=== PATIENT | male | born 1980 | race Caucasian/White ===

== ENCOUNTER 2016-07-10 04:15 | Emergency (ER) | payer MEDICARE, MEDICAID ==
[2016-07-10] MEDS ORDERED: Ketorolac 30 MG/ML SDV IVPUSH ONE (04:53)
[2016-07-10] MEDS ORDERED: Sodium Chloride 0.9% 1,000 ML IV ONE (04:53)
[2016-07-10] MEDS ORDERED: methylPREDNISolone Sodium Succinate 125 MG/2 ML SDV IVPUSH ONE (04:53)
[2016-07-10] MEDS ORDERED: Sodium Chloride 0.9% 5 ML Syringe FLUSH PRN (04:53)
[2016-07-10] MEDS ORDERED: Metoclopramide 10 MG/2 ML SDV IVPUSH ONE (04:55)
--- NOTE | 2016-07-10 05:01 | EDM.PDOC ---
ED HPI HEADACHE COMPLAINT - General Chief Complaint: Headache Stated Complaint: migraine Time Seen by Provider: 07/10/16 04:53 Source of Information: Reports: Patient History Limitations: Reports: No limitations - History of Present Illness INITIAL COMMENTS - FREE TEXT/NARRATIVE: PT PRESENTS WITH MIGRAINE ROMERO THAT BEGAN AT 0100 TODAY. DESCRIBED TYPICAL MIGRAINE FOR HIM. DENIES AURA, N/V, FEVER, STIFF NECK, OR TRAUMA, Timing/Duration: Reports: waxing/waning Location: Reports: generalized Quality: Reports: pounding Severity: Reports: moderate, similar to past headaches Associated Symptoms: Reports: denies other symptoms Treatments VAULT CLERK: Reports: Other medication(s) (IMITREX) - Related Data Allergies/ADRs: Allergies Allergy/AdvReac Type Severity Reaction Status Date / Time aspirin Allergy Unknown Vomiting Verified 05/02/16 05:58 Home Meds: Home Meds Pregabalin [Lyrica] 100 mg PO TID 10/29/13 [History] Promethazine [Phenergan] 25 mg PO Q6HR PRN 10/29/13 [History] SUMAtriptan [Sumatriptan] 100 mg PO BID PRN 10/29/13 [History] tiZANidine [Zanaflex] 8 mg PO TID 10/29/13 [History] traMADol HCl [Tramadol HCl] 50 mg PO Q6H PRN 02/16/14 [History] Hydrocodone/Acetaminophen [Hydrocodon-Acetaminophn 10-325] 1 each PO TID [History] SUMAtriptan [Imitrex] 6 mg SQ BID PRN 11/11/14 [History] Past Medical History HEENT History: Reports: Impaired vision, Otitis media, Other (see below) Other HEENT History: Tonsilitis Cardiovascular History: Reports: None Respiratory History: Reports: Asthma, Other (see below) Other Respiratory History: White lung disease Gastrointestinal History: Reports: GI bleed, PUD Musculoskeletal History: Reports: Fracture, Other (see below) Other Musculoskeletal History: States he fractured both lower legs when he was 16 yrs old. The accident affected his bilateral knees and his neck. Neurological History: Reports: Headaches, chronic, Migraines, Other (see below) Other Neuro History: herniated disc in neck Psychiatric History: Reports: Anxiety, Depression - Infectious Disease History Infectious Disease History: Reports: Chicken pox - Past Surgical History HEENT Surgical History: Reports: Oral surgery Cardiovascular Surgical History: Reports: None Respiratory Surgical History: Reports: None GI Surgical History: Reports: None Musculoskeletal Surgical History: Reports: None Social & Family History - Family History Family Medical History: Noncontributory - Tobacco Use Smoking Status *Q: Current Every Day Smoker Years of Tobacco use: 24 Packs/Tins Daily: 0.5 Used Tobacco, but Quit: No Second Hand Smoke Exposure: Yes - Caffeine Use Caffeine Use: Reports: Soda - Alcohol Use Days Per Week of Alcohol Use: 1 Number of Drinks Per Day: 2 Total Drinks Per Week: 2 - Recreational Drug Use Recreational Drug Use: No - Living Situation & Occupation Occupation: disabled ED ROS GENERAL - Review of Systems Review Of Systems: ROS reveals no pertinent complaints other than HPI. Constitutional: Reports: no symptoms HEENT: Reports: No symptoms Respiratory: Reports: No Symptoms Cardiovascular: Reports: No symptoms Endocrine: Reports: no symptoms GI/Abdominal: Reports: No symptoms : Reports: no symptoms Musculoskeletal: Reports: no symptoms Skin: Reports: no symptoms Neurological: Reports: Headache. Denies: Dizziness, Numbness, Paresthesia, Trouble Speaking, Difficulty Walking, Weakness, Change in Speech, Gait Disturbance Psychiatric: Reports: No symptoms Hematologic/Lymphatic: Reports: no symptoms Immunologic: Reports: no symptoms - Physical Exam Exam: See Below Exam Limited By: No limitations General Appearance: alert, WD/WN, no apparent distress Eye Exam: bilateral eye: normal inspection Ears: normal external exam, normal canal, normal TMs Nose: normal inspection, normal mucosa, no blood Throat/Mouth: Normal inspection, Normal oropharynx, No airway compromise Head Exam: atraumatic, normocephalic Neck: normal inspection, supple, non-tender, full range of motion Respiratory/Chest: no respiratory distress, lungs clear, normal breath sounds, no accessory muscle use, chest non-tender Cardiovascular: regular rate, rhythm, no murmur GI/Abdominal: normal bowel sounds, soft, non tender Neuro Exam (Abbreviated): alert, oriented, CN II-XII intact, normal cognition, no motor/sensory deficits Extremities: normal inspection, no pedal edema Psychiatric: normal affect, normal mood Skin Exam: Warm, Dry, Intact, Normal color, No rash Course - Orders/Labs/Meds Orders: Active Orders 24 hr Category Date Time Status Peripheral IV Care [RC] . DIRECTED Care 07/10/16 04:54 Ordered Ketorolac [Toradol] Med 07/10/16 04:53 Once 30 mg IVPUSH ONETIME ONE Metoclopramide [Reglan] Med 07/10/16 04:55 Once 5 mg IVPUSH ONETIME ONE Sodium Chloride 0.9% @ 999 MLS/HR (1000ml) Med 07/10/16 04:53 Ordered Sodium Chloride 0.9% [Normal Saline] 1,000 ml IV .BOLUS Sodium Chloride 0.9% [Syrex Flush] Med 07/10/16 04:53 Ordered 5 ml FLUSH Q8HR PRN methylPREDNISolone Sod Succ [Solu-MEDROL] Med 07/10/16 04:53 Once 125 mg IVPUSH ONETIME ONE Peripheral IV Insertion Adult [OM.PC] Routine Oth 07/10/16 04:53 Ordered - Re-Assessments/Exams Free Text/Narrative Re-Assessment/Exam: 07/10/16 05:20 PT AFEBRILE, NONTOXIC APPEARING, VSS, ROMERO MOSTLY RELIEVED. Departure - Departure Time of Disposition: 05:21 Disposition: Home, Self-Care 01 Condition: good Clinical Impression: Migraine, Headache, Migraine without aura and responsive to treatment Instructions: Migraine Headache, [id number] Referrals: Martha Poole MD [Physician] - Forms: ED Department Discharge Additional Instructions: FOLLOW UP WITH PCP IN NEXT 2-3 DAYS. RETURN TO ER SOONER IF SYMPTOMS CONTINUE - My Orders Last 24 Hours: My Active Orders 07/10/16 04:53 Ketorolac [Toradol] 30 mg IVPUSH ONETIME ONE Sodium Chloride 0.9% @ 999 MLS/HR (1000ml) Sodium Chloride 0.9% [Normal Saline] 1,000 ml IV .BOLUS Sodium Chloride 0.9% [Syrex Flush] 5 ml FLUSH Q8HR PRN methylPREDNISolone Sod Succ [Solu-MEDROL] 125 mg IVPUSH ONETIME ONE Peripheral IV Insertion Adult [OM.PC] Routine 07/10/16 04:54 Peripheral IV Care [RC] . DIRECTED 07/10/16 04:55 Metoclopramide [Reglan] 5 mg IVPUSH ONETIME ONE - Assessment/Plan Last 24 Hours: My Active Orders 07/10/16 04:53 Ketorolac [Toradol] 30 mg IVPUSH ONETIME ONE Sodium Chloride 0.9% @ 999 MLS/HR (1000ml) Sodium Chloride 0.9% [Normal Saline] 1,000 ml IV .BOLUS Sodium Chloride 0.9% [Syrex Flush] 5 ml FLUSH Q8HR PRN methylPREDNISolone Sod Succ [Solu-MEDROL] 125 mg IVPUSH ONETIME ONE Peripheral IV Insertion Adult [OM.PC] Routine 07/10/16 04:54 Peripheral IV Care [RC] . DIRECTED 07/10/16 04:55 Metoclopramide [Reglan] 5 mg IVPUSH ONETIME ONE Assessment:: MIGRAINE HEADACHE Plan: F/U WITH PCP
[2016-07-10 05:23] VITALS: BP 124/73
== END 2016-07-10 05:50 | disposition home or self-care (01) ==
LOC: KA.ED 04:15
DX: G43.009 Migraine without aura, not intractable, without status migrainosus (principal); J45.909 Unspecified asthma, uncomplicated; F17.210 Nicotine dependence, cigarettes, uncomplicated; F32.9 Major depressive disorder, single episode, unspecified; F41.9 Anxiety disorder, unspecified; Z98.890 Other specified postprocedural states; Z88.6 Allergy status to analgesic agent
CPT/HCPCS: 96361; 96374; 96375; 99283; J1885; J2765; J2930; J7030; 99284

== ENCOUNTER 2016-08-30 13:20 | Emergency (ER) | payer MEDICARE, MEDICAID ==
[2016-08-30] MEDS ORDERED: diphenhydrAMINE 50 MG/ML SDV IVPUSH ONE (13:28)
[2016-08-30] MEDS ORDERED: Ketorolac 30 MG/ML SDV IVPUSH ONE (13:28)
[2016-08-30] MEDS ORDERED: Metoclopramide 10 MG/2 ML SDV IVPUSH ONE (13:28)
--- NOTE | 2016-08-30 13:34 | EDM.PDOC ---
ED HPI GENERAL MEDICAL PROBLEM - General Chief Complaint: Headache Stated Complaint: headache Time Seen by Provider: 08/30/16 13:20 Source of Information: Reports: Patient History Limitations: Reports: No Limitations - History of Present Illness INITIAL COMMENTS - FREE TEXT/NARRATIVE: 36 YO WM presents to ER with complaint of headache. Pt with history of chronic migraines and states this is similar to his typical migraine headaches he's gotten in the past but imitrex isn't helping. Pt denies any recent head injury, pt denies any vomiting. Pt reports he usually gets toradol, phenergan and benadryl for his intractable headaches like the one he has today. Pt denies any recent illness. Pt denies any fever/chills. Pt reports he drove himself to the ER and will arrange for a ride home. Onset Date: 08/30/16 Onset Time: 00:00 Duration: Hour(s): (13) Location: Reports: Head Quality: Reports: Ache Severity: Moderate Improves with: Reports: None, Rest Worsens with: Reports: Movement Associated Symptoms: Reports: No Other Symptoms Headache Pain Score (Numeric/FACES): 10 - Related Data Allergies Allergy/AdvReac Type Severity Reaction Status Date / Time aspirin Allergy Unknown Vomiting Verified 07/10/16 10:03 Home Meds: Home Meds Pregabalin [Lyrica] 100 mg PO TID 10/29/13 [History] Promethazine [Phenergan] 25 mg PO Q6HR PRN 10/29/13 [History] SUMAtriptan [Sumatriptan] 100 mg PO BID PRN 10/29/13 [History] tiZANidine [Zanaflex] 8 mg PO TID 10/29/13 [History] traMADol HCl [Tramadol HCl] 50 mg PO Q6H PRN 02/16/14 [History] Hydrocodone/Acetaminophen [Hydrocodon-Acetaminophn 10-325] 1 each PO TID [History] SUMAtriptan [Imitrex] 6 mg SQ BID PRN 11/11/14 [History] Past Medical History HEENT History: Reports: Impaired Vision, Otitis Media, Other (See Below) Other HEENT History: Tonsilitis Cardiovascular History: Reports: None Respiratory History: Reports: Asthma, Other (See Below) Other Respiratory History: White lung disease Gastrointestinal History: Reports: GI Bleed, PUD Musculoskeletal History: Reports: Fracture, Other (See Below) Other Musculoskeletal History: States he fractured both lower legs when he was 16 yrs old. The accident affected his bilateral knees and his neck. Neurological History: Reports: Headaches, Chronic, Migraines, Other (See Below) Other Neuro History: herniated disc in neck Psychiatric History: Reports: Anxiety, Depression - Infectious Disease History Infectious Disease History: Reports: Chicken Pox - Past Surgical History HEENT Surgical History: Reports: Oral Surgery Social & Family History - Family History Family Medical History: Noncontributory - Tobacco Use Smoking Status *Q: Current Every Day Smoker Years of Tobacco use: 24 Packs/Tins Daily: 0.5 Used Tobacco, but Quit: No Second Hand Smoke Exposure: Yes - Caffeine Use Caffeine Use: Reports: Soda - Alcohol Use Days Per Week of Alcohol Use: 1 Number of Drinks Per Day: 2 Total Drinks Per Week: 2 - Recreational Drug Use Recreational Drug Use: No - Living Situation & Occupation Occupation: Disabled ED [facility] GENERAL - Review of Systems Review Of Systems: See Below Constitutional: Reports: No Symptoms HEENT: Reports: No Symptoms Respiratory: Reports: No Symptoms Cardiovascular: Reports: No Symptoms Endocrine: Reports: No Symptoms GI/Abdominal: Reports: No Symptoms : Reports: No Symptoms Musculoskeletal: Reports: No Symptoms Skin: Reports: No Symptoms Neurological: Reports: Headache. Denies: Trouble Speaking, Difficulty Walking, Change in Speech, Gait Disturbance Psychiatric: Reports: No Symptoms Hematologic/Lymphatic: Reports: No Symptoms Immunologic: Reports: No Symptoms - Physical Exam Exam: See Below Exam Limited By: No Limitations General Appearance: Alert, WD/WN, Mild Distress Eye Exam: Bilateral Eye: EOMI, PERRL Throat/Mouth: Normal Inspection, Normal Lips, Normal Teeth, Normal Gums, Normal Oropharynx, Normal Voice, No Airway Compromise Head Exam: Atraumatic, Normocephalic Neck: Normal Inspection, Supple, Non-Tender, Full Range of Motion Respiratory/Chest: No Respiratory Distress, Lungs Clear, Normal Breath Sounds, No Accessory Muscle Use, Chest Non-Tender Cardiovascular: Normal Peripheral Pulses, Regular Rate, Rhythm, No Edema, No Gallop, No JVD, No Murmur, No Rub GI/Abdominal: Normal Bowel Sounds, Soft, Non-Tender, No Organomegaly, No Distention, No Abnormal Bruit, No Mass Neuro Exam (Abbreviated): Alert, Oriented, CN II-XII Intact, Normal Cognition, Normal Gait, Normal Reflexes, No Motor/Sensory Deficits Back Exam: Normal Inspection, Full Range of Motion, NT Extremities: Normal Inspection, Normal Range of Motion, Non-Tender, No Pedal Edema, Normal Capillary Refill Psychiatric: Normal Affect, Normal Mood Skin Exam: Warm, Dry, Intact, Normal Color, No Rash Course - Vital Signs Last Recorded V/S: Last Vital Signs Temp 36.7 C 08/30/16 13:26 Pulse 76 08/30/16 13:26 Resp 18 08/30/16 13:26 BP Pulse Ox 98 08/30/16 13:26 - Orders/Labs/Meds Meds: Medications Discontinued Medications Generic Name Dose Route Start Last Admin Trade Name Freq PRN Reason Stop Dose Admin Diphenhydramine HCl 50 mg 08/30/16 13:28 Benadryl IVPUSH 08/30/16 13:29 ONETIME ONE Ketorolac Tromethamine 30 mg 08/30/16 13:28 Toradol IVPUSH 08/30/16 13:29 ONETIME ONE Metoclopramide HCl 10 mg 08/30/16 13:28 Reglan IVPUSH 08/30/16 13:29 ONETIME ONE Departure - Departure Time of Disposition: 13:59 Disposition: Home, Self-Care 01 Condition: fair Clinical Impression: Migraine Migraine Qualifiers: Migraine type: chronic without aura Status migrainosus presence: without status migrainosus Intractability: not intractable Qualified Code(s): G43.709 - Chronic migraine without aura, not intractable, without status migrainosus - Discharge Information Instructions: Recurrent Migraine Headache, [id number] Referrals: Martha Poole MD [Primary Care Provider] - Forms: ED Department Discharge - Assessment/Plan Assessment:: 1. Migraine headache- improved Plan: 1. discharge home 2. follow up with neurology for further evaluation and treatment 3. imitrex PRN
== END 2016-08-30 14:10 | disposition home or self-care (01) ==
LOC: KA.ED 13:20
DX: G43.709 Chronic migraine without aura, not intractable, without status migrainosus (principal); J45.909 Unspecified asthma, uncomplicated; F17.210 Nicotine dependence, cigarettes, uncomplicated; F41.9 Anxiety disorder, unspecified; F32.9 Major depressive disorder, single episode, unspecified; Z88.6 Allergy status to analgesic agent; Z98.890 Other specified postprocedural states
CPT/HCPCS: 96374; 96375; 99283; J1200; J1885; J2765

== ENCOUNTER 2016-11-20 22:33 | Emergency (ER) | payer MEDICARE, MEDICAID ==
[2016-11-20 22:56] VITALS: BP 107/67
[2016-11-20] MEDS ORDERED: Ketorolac 60 MG/2 ML SDV IM ONE (23:21)
[2016-11-20] MEDS ORDERED: Ketorolac 60 MG/2 ML SDV ONE (23:25)
--- NOTE | 2016-11-20 23:28 | EDM.PDOC ---
ED HPI GENERAL MEDICAL PROBLEM - General Chief Complaint: Headache Stated Complaint: HEADACHE Time Seen by Provider: 11/20/16 23:19 Source of Information: Reports: Patient History Limitations: Reports: No Limitations - History of Present Illness INITIAL COMMENTS - FREE TEXT/NARRATIVE: PT HAS CHRONIC HEADACHES AND DEVELOPED ONE THIS EVENING THAT DID NOT RESOLVE WITH IMITREX. DENIES TRAUMA, FEVER, N/V, BLURRY VISION, OR LOC. Onset: Gradual Duration: Chronic Location: Reports: Head Severity: Mild Improves with: Reports: None Worsens with: Reports: None Associated Symptoms: Reports: No Other Symptoms Treatments ACUTE SPECIALIST: Reports: Other Medication(s) Headache Pain Score (Numeric/FACES): 10 - Related Data Allergies Allergy/AdvReac Type Severity Reaction Status Date / Time aspirin Allergy Unknown Vomiting Verified 11/20/16 23:07 Home Meds: Home Meds Pregabalin [Lyrica] 100 mg PO TID 10/29/13 [History] Promethazine [Phenergan] 25 mg PO Q6HR PRN 10/29/13 [History] SUMAtriptan [Sumatriptan] 100 mg PO BID PRN 10/29/13 [History] tiZANidine [Zanaflex] 8 mg PO TID 10/29/13 [History] traMADol HCl [Tramadol HCl] 50 mg PO Q6H PRN 02/16/14 [History] Hydrocodone/Acetaminophen [Hydrocodon-Acetaminophn 10-325] 10 - 325 mg PO TID [History] SUMAtriptan [Imitrex] 6 mg SQ BID PRN 11/11/14 [History] Past Medical History HEENT History: Reports: Impaired Vision, Otitis Media, Other (See Below) Other HEENT History: Tonsilitis Cardiovascular History: Reports: None Respiratory History: Reports: Asthma, Other (See Below) Other Respiratory History: White lung disease Gastrointestinal History: Reports: GI Bleed, PUD Musculoskeletal History: Reports: Fracture, Other (See Below) Other Musculoskeletal History: States he fractured both lower legs when he was 16 yrs old. The accident affected his bilateral knees and his neck. Neurological History: Reports: Headaches, Chronic, Migraines, Other (See Below) Other Neuro History: herniated disc in neck Psychiatric History: Reports: Anxiety, Depression - Infectious Disease History Infectious Disease History: Reports: Chicken Pox - Past Surgical History HEENT Surgical History: Reports: Oral Surgery Respiratory Surgical History: Reports: None GI Surgical History: Reports: None Neurological Surgical History: Reports: None Social & Family History - Family History Family Medical History: Noncontributory - Tobacco Use Smoking Status *Q: Current Every Day Smoker Years of Tobacco use: 24 Packs/Tins Daily: 0.5 Used Tobacco, but Quit: No Second Hand Smoke Exposure: Yes - Caffeine Use Caffeine Use: Reports: Soda Other Caffeine Use: mountain dew - Alcohol Use Days Per Week of Alcohol Use: 1 Number of Drinks Per Day: 2 Total Drinks Per Week: 2 - Recreational Drug Use Recreational Drug Use: No - Living Situation & Occupation Occupation: Disabled ED ROS GENERAL - Review of Systems Review Of Systems: ROS reveals no pertinent complaints other than HPI. Constitutional: Reports: No Symptoms HEENT: Reports: No Symptoms Respiratory: Reports: No Symptoms Cardiovascular: Reports: No Symptoms Endocrine: Reports: No Symptoms GI/Abdominal: Reports: No Symptoms : Reports: No Symptoms Musculoskeletal: Reports: No Symptoms Skin: Reports: No Symptoms Neurological: Reports: Headache. Denies: Confusion, Dizziness, Trouble Speaking , Difficulty Walking, Change in Speech, Gait Disturbance Psychiatric: Reports: No Symptoms Hematologic/Lymphatic: Reports: No Symptoms Immunologic: Reports: No Symptoms - Physical Exam Exam: See Below Exam Limited By: No Limitations General Appearance: Alert, WD/WN, No Apparent Distress Eye Exam: Bilateral Eye: Normal Inspection Ears: Normal External Exam, Normal Canal Nose: Normal Inspection, Normal Mucosa, No Blood Throat/Mouth: Normal Inspection, Normal Oropharynx, No Airway Compromise Head Exam: Atraumatic, Normocephalic Neck: Normal Inspection Respiratory/Chest: No Respiratory Distress Neuro Exam (Abbreviated): Alert, Oriented, CN II-XII Intact, Normal Cognition, No Motor/Sensory Deficits Psychiatric: Normal Affect, Normal Mood Skin Exam: Warm, Dry, Intact, Normal Color, No Rash Course - Vital Signs Last Recorded V/S: Last Vital Signs Temp 99.0 F 11/20/16 22:52 Pulse 78 11/20/16 22:52 Resp 16 11/20/16 22:52 BP 107/67 11/20/16 22:52 Pulse Ox 98 11/20/16 22:52 - Orders/Labs/Meds Orders: Active Orders 24 hr Category Date Time Status Ketorolac [Toradol] Med 11/20/16 23:21 Once 60 mg IM ONETIME ONE - Re-Assessments/Exams Free Text/Narrative Re-Assessment/Exam: 11/20/16 23:26 PT AFEBRILE, NONTOXIC APPEARING, VSS, NO SIGNS OF DISCOMFORT. TORADOL GIVEN WITH SOME RELIEF Departure - Departure Time of Disposition: 23:26 Disposition: Home, Self-Care 01 Condition: Good Clinical Impression: Headache, Migraine Chronic pain Qualifiers: Chronic pain type: chronic pain syndrome Qualified Code(s): G89.4 - Chronic pain syndrome - Discharge Information Instructions: General Headache Without Cause, [id number], Chronic Pain Referrals: Martha Poole MD [Primary Care Provider] - Additional Instructions: FOLLOW UP WITH DR RODRÍGUEZ. RETURN TO ER IF SYMPTOMS CONTINUE - My Orders Last 24 Hours: My Active Orders 11/20/16 23:21 Ketorolac [Toradol] 60 mg IM ONETIME ONE - Assessment/Plan Last 24 Hours: My Active Orders 11/20/16 23:21 Ketorolac [Toradol] 60 mg IM ONETIME ONE Assessment:: CHRONIC HEADACHE Plan: F/U WITH PCP
== END 2016-11-20 23:45 | disposition home or self-care (01) ==
LOC: KA.ED 22:33
DX: G89.4 Chronic pain syndrome (principal); G43.909 Migraine, unspecified, not intractable, without status migrainosus; J45.909 Unspecified asthma, uncomplicated; F41.9 Anxiety disorder, unspecified; F32.9 Major depressive disorder, single episode, unspecified; F17.210 Nicotine dependence, cigarettes, uncomplicated; Z88.5 Allergy status to narcotic agent; Z98.890 Other specified postprocedural states
CPT/HCPCS: 96372; 99283; J1885

== ENCOUNTER 2016-11-23 05:06 | Emergency (ER) | payer MEDICARE, MEDICAID ==
[2016-11-23] MEDS ORDERED: Ketorolac 60 MG/2 ML SDV IM ONE (05:07)
[2016-11-23 05:21] VITALS: BP 124/92
--- NOTE | 2016-11-23 05:35 | EDM.PDOC ---
ED HPI GENERAL MEDICAL PROBLEM - General Chief Complaint: Headache Stated Complaint: MIGRAINE Time Seen by Provider: 11/23/16 05:26 Source of Information: Reports: Patient History Limitations: Reports: No Limitations - History of Present Illness INITIAL COMMENTS - FREE TEXT/NARRATIVE: PT STATES HE WOKE AT 0400 WITH MIGRAINE HEADACHE AND TOOK IMITREX. DID NOT GO AWAY SO CAME TO ER. DESCRIBES ROMERO SIMILAR TO PAST AND CAUSED BY DISPLACED BONES IN NECK WHICH IS WHY HE HAS SYMPTOMS. CHRONIC H/O SAME AND FREQUENT VISITS TO ER . DENIES TRAUMA, BLURRY VISION, N/V, OR FEVER. Onset: Today Onset Date: 11/23/16 Onset Time: 04:00 Location: Reports: Head Quality: Reports: Ache Severity: Mild Improves with: Reports: None Worsens with: Reports: None Associated Symptoms: Reports: No Other Symptoms Treatments PHOTO TECHNICIAN: Reports: Other Medication(s) (IMITREX) Headache Pain Score (Numeric/FACES): 10 - Related Data Allergies Allergy/AdvReac Type Severity Reaction Status Date / Time aspirin Allergy Unknown Vomiting Verified 11/23/16 05:07 Home Meds: Home Meds Pregabalin [Lyrica] 100 mg PO TID 10/29/13 [History] Promethazine [Phenergan] 25 mg PO Q6HR PRN 10/29/13 [History] SUMAtriptan [Sumatriptan] 100 mg PO BID PRN 10/29/13 [History] tiZANidine [Zanaflex] 8 mg PO TID 10/29/13 [History] traMADol HCl [Tramadol HCl] 50 mg PO Q6H PRN 02/16/14 [History] Hydrocodone/Acetaminophen [Hydrocodon-Acetaminophn 10-325] 10 - 325 mg PO TID [History] SUMAtriptan [Imitrex] 6 mg SQ BID PRN 11/11/14 [History] Past Medical History HEENT History: Reports: Impaired Vision, Otitis Media, Other (See Below) Other HEENT History: Tonsilitis Cardiovascular History: Reports: None Respiratory History: Reports: Asthma, Other (See Below) Other Respiratory History: White lung disease Gastrointestinal History: Reports: GI Bleed, PUD Musculoskeletal History: Reports: Fracture, Other (See Below) Other Musculoskeletal History: States he fractured both lower legs when he was 16 yrs old. The accident affected his bilateral knees and his neck. Neurological History: Reports: Headaches, Chronic, Migraines, Other (See Below) Other Neuro History: herniated disc in neck Psychiatric History: Reports: Anxiety, Depression - Infectious Disease History Infectious Disease History: Reports: Chicken Pox - Past Surgical History HEENT Surgical History: Reports: Oral Surgery Respiratory Surgical History: Reports: None GI Surgical History: Reports: None Neurological Surgical History: Reports: None Social & Family History - Family History Family Medical History: Noncontributory - Tobacco Use Smoking Status *Q: Current Every Day Smoker Years of Tobacco use: 24 Packs/Tins Daily: 0.5 Used Tobacco, but Quit: No Second Hand Smoke Exposure: Yes - Caffeine Use Caffeine Use: Reports: Soda Other Caffeine Use: [employer] dew - Alcohol Use Days Per Week of Alcohol Use: 1 Number of Drinks Per Day: 2 Total Drinks Per Week: 2 - Recreational Drug Use Recreational Drug Use: No - Living Situation & Occupation Occupation: Disabled ED ROS GENERAL - Review of Systems Review Of Systems: ROS reveals no pertinent complaints other than HPI. Constitutional: Reports: No Symptoms HEENT: Reports: No Symptoms Respiratory: Reports: No Symptoms Cardiovascular: Reports: No Symptoms Endocrine: Reports: No Symptoms GI/Abdominal: Reports: No Symptoms : Reports: No Symptoms Musculoskeletal: Reports: No Symptoms Skin: Reports: No Symptoms Neurological: Reports: No Symptoms Psychiatric: Reports: No Symptoms Hematologic/Lymphatic: Reports: No Symptoms Immunologic: Reports: No Symptoms - Physical Exam Exam: See Below Exam Limited By: No Limitations General Appearance: Alert, WD/WN, No Apparent Distress Eye Exam: Bilateral Eye: Normal Inspection Nose: Normal Inspection, No Blood Throat/Mouth: Normal Inspection, Normal Oropharynx, No Airway Compromise Head Exam: Atraumatic, Normocephalic Neck: Limited Range of Motion Respiratory/Chest: No Respiratory Distress, Lungs Clear Cardiovascular: Regular Rate, Rhythm Neuro Exam (Abbreviated): Alert, Oriented, CN II-XII Intact, Normal Cognition Extremities: Normal Inspection Psychiatric: Normal Affect, Normal Mood Skin Exam: Warm, Dry, Intact, Normal Color, No Rash Course - Vital Signs Last Recorded V/S: Last Vital Signs Temp 96.7 F 11/23/16 05:15 Pulse 86 11/23/16 05:15 Resp 16 11/23/16 05:15 BP 124/92 H 08/28/17 05:15 Pulse Ox 94 L 11/23/16 05:15 - Orders/Labs/Meds Meds: Medications Discontinued Medications Generic Name Dose Route Start Last Admin Trade Name Patricia PRN Reason Stop Dose Admin Ketorolac Tromethamine 60 mg 11/23/16 05:07 11/23/16 05:10 Toradol IM 11/23/16 05:08 60 mg ONETIME ONE Administration - Re-Assessments/Exams Free Text/Narrative Re-Assessment/Exam: 11/23/16 05:38 PT AFEBRILE, NONTOXIC APPEARING, VSS, TORADOL GIVEN, MODERATE RELIEF OBTAINED Departure - Departure Time of Disposition: 05:39 Disposition: Home, Self-Care 01 Condition: Good Clinical Impression: Migraine Qualifiers: Migraine type: chronic without aura Status migrainosus presence: without status migrainosus Intractability: not intractable Qualified Code(s): G43.709 - Chronic migraine without aura, not intractable, without status migrainosus - Discharge Information Instructions: Migraine Headache, [id number] Referrals: Martha Poole MD [Physician] - Additional Instructions: FOLLOW UP AT CLINIC IN NEXT 2-3 DAYS - Assessment/Plan Assessment:: MIGRAINE ROMERO Plan: FOLLOW UP AT PCP
== END 2016-11-23 05:45 | disposition home or self-care (01) ==
LOC: KA.ED 05:06
DX: G43.709 Chronic migraine without aura, not intractable, without status migrainosus (principal); J45.909 Unspecified asthma, uncomplicated; F17.210 Nicotine dependence, cigarettes, uncomplicated; Z88.6 Allergy status to analgesic agent
CPT/HCPCS: 96372; 99283; J1885

== ENCOUNTER 2017-01-02 13:44 | Emergency (ER) | payer MEDICARE, MEDICAID ==
[2017-01-02] MEDS ORDERED: diphenhydrAMINE 50 MG/ML SDV IM ONE (14:03)
[2017-01-02] MEDS ORDERED: Ketorolac 60 MG/2 ML SDV IM ONE (14:03)
[2017-01-02] MEDS ORDERED: methylPREDNISolone Sodium Succinate 125 MG/2 ML SDV IM ONE (14:03)
[2017-01-02 14:06] VITALS: BP 131/85
[2017-01-02] MEDS ORDERED: Ondansetron 4 MG Tab.DIS PO ONE (14:09)
--- NOTE | 2017-01-02 14:19 | EDM.PDOC ---
ED HPI GENERAL MEDICAL PROBLEM - General Chief Complaint: Headache Stated Complaint: MIGRAINE HEADACHE Time Seen by Provider: 01/02/17 13:49 Source of Information: Reports: Patient History Limitations: Reports: No Limitations - History of Present Illness INITIAL COMMENTS - FREE TEXT/NARRATIVE: Patient presents with one of his - Related Data Allergies Allergy/AdvReac Type Severity Reaction Status Date / Time aspirin Allergy Unknown Vomiting Verified 01/02/17 14:10 Home Meds: Home Meds Pregabalin [Lyrica] 100 mg PO TID 10/29/13 [History] Promethazine [Phenergan] 25 mg PO Q6HR PRN 10/29/13 [History] SUMAtriptan [Sumatriptan] 100 mg PO BID PRN 10/29/13 [History] tiZANidine [Zanaflex] 8 mg PO TID 10/29/13 [History] traMADol HCl [Tramadol HCl] 50 mg PO Q6H PRN 02/16/14 [History] Hydrocodone/Acetaminophen [Hydrocodon-Acetaminophn 10-325] 10 - 325 mg PO TID [History] SUMAtriptan [Imitrex] 6 mg SQ BID PRN 11/11/14 [History] Past Medical History HEENT History: Reports: Impaired Vision, Otitis Media, Other (See Below) Other HEENT History: Tonsilitis Cardiovascular History: Reports: None Respiratory History: Reports: Asthma, Other (See Below) Other Respiratory History: White lung disease Gastrointestinal History: Reports: GI Bleed, PUD Musculoskeletal History: Reports: Fracture, Other (See Below) Other Musculoskeletal History: States he fractured both lower legs when he was 16 yrs old. The accident affected his bilateral knees and his neck. Neurological History: Reports: Headaches, Chronic, Migraines, Other (See Below) Other Neuro History: herniated disc in neck Psychiatric History: Reports: Anxiety, Depression - Infectious Disease History Infectious Disease History: Reports: Chicken Pox - Past Surgical History HEENT Surgical History: Reports: Oral Surgery Respiratory Surgical History: Reports: None GI Surgical History: Reports: None Neurological Surgical History: Reports: None Social & Family History - Family History Family Medical History: Noncontributory - Tobacco Use Smoking Status *Q: Current Every Day Smoker Years of Tobacco use: 24 Packs/Tins Daily: 0.5 Used Tobacco, but Quit: No Second Hand Smoke Exposure: Yes - Caffeine Use Caffeine Use: Reports: Soda Other Caffeine Use: mountain dew - Alcohol Use Days Per Week of Alcohol Use: 1 Number of Drinks Per Day: 2 Total Drinks Per Week: 2 - Recreational Drug Use Recreational Drug Use: No - Living Situation & Occupation Occupation: Disabled ED ROS GENERAL - Review of Systems Review Of Systems: See Below Constitutional: Denies: Fever, Chills, Weakness HEENT: Denies: Ear Pain, Vision Change (except the usual photophobia with headaches) Respiratory: Reports: Cough (he is being treated for chronic bronchitis exacerbation by his PCP). Denies: Shortness of Breath Cardiovascular: Denies: Chest Pain, Lightheadedness, Syncope GI/Abdominal: Reports: Nausea. Denies: Abdominal Pain, Diarrhea, Vomiting : Denies: Dysuria Musculoskeletal: Reports: No Symptoms Skin: Denies: Cyanosis, Jaundice, Mottled, Pallor, Diaphoresis Neurological: Reports: Headache. Denies: Confusion, Dizziness, Seizure, Syncope Psychiatric: Denies: Agitation, Anxiety, Confusion - Physical Exam Exam: See Below Exam Limited By: No Limitations General Appearance: Alert, WD/WN, No Apparent Distress Eye Exam: Bilateral Eye: EOMI, Normal Inspection, PERRL Ears: Normal External Exam, Hearing Grossly Normal Nose: Normal Inspection, No Blood Throat/Mouth: Normal Inspection, Normal Lips, Normal Voice, No Airway Compromise Head Exam: Atraumatic, Normocephalic Respiratory/Chest: No Respiratory Distress, Crackles, Wheezing Cardiovascular: Regular Rate, Rhythm, No Murmur Neuro Exam (Abbreviated): Alert, Oriented, Normal Cognition, No Motor/Sensory Deficits Psychiatric: Normal Affect, Normal Mood Skin Exam: Warm, Dry, Intact, Normal Color, No Rash Course - Vital Signs Last Recorded V/S: Last Vital Signs Temp 97.5 F 01/02/17 14:04 Pulse 99 01/02/17 14:04 Resp 20 01/02/17 14:04 BP 131/85 01/02/17 14:04 Pulse Ox 93 L 01/02/17 14:04 - Orders/Labs/Meds Meds: Medications Discontinued Medications Generic Name Dose Route Start Last Admin Trade Name Freq PRN Reason Stop Dose Admin Diphenhydramine HCl 50 mg 01/02/17 14:03 Benadryl IM 01/02/17 14:04 ONETIME ONE Ketorolac Tromethamine 60 mg 01/02/17 14:03 Toradol IM 01/02/17 14:04 ONETIME ONE Methylprednisolone Sodium Succinate 125 mg 01/02/17 14:03 Solu-Medrol IM 01/02/17 14:04 ONETIME ONE Ondansetron HCl 4 mg 01/02/17 14:09 Zofran Odt PO 01/02/17 14:10 ONETIME ONE - Re-Assessments/Exams Free Text/Narrative Re-Assessment/Exam: 01/02/17 14:21 We discussed his past regimens for headache treatment. Since he needs to drive himself back home he will need to leave shortly after administration of the Benadryl to avoid driving with the drowsiness it causes. He is well aware of this as this has been the protocol on several past occasions. 01/02/17 15:21 Patient was discharged in stable condition and he said the headache was improving. Departure - Departure Time of Disposition: 14:48 Disposition: Home, Self-Care 01 Condition: Good Clinical Impression: Cluster headache syndrome, unspecified Qualifiers: Headache chronicity pattern: episodic headache Intractability: intractable Qualified Code(s): G44.011 - Episodic cluster headache, intractable - Discharge Information Referrals: Martha Poole MD [Primary Care Provider] - Additional Instructions: 1. Go directly home and try to get 10-12 hours of sleep. No driving for 8 hours after you get home as the Benadryl will need to wear off. 2. Drink 8 cups of water daily. 3. Follow up with your PCP as needed.
== END 2017-01-02 14:48 | disposition home or self-care (01) ==
LOC: KA.ED 13:44
DX: G44.011 Episodic cluster headache, intractable (principal); J45.909 Unspecified asthma, uncomplicated; F32.9 Major depressive disorder, single episode, unspecified; F17.210 Nicotine dependence, cigarettes, uncomplicated; Z88.6 Allergy status to analgesic agent
CPT/HCPCS: 96372; 99283; A9270; J1200; J1885; J2930

== ENCOUNTER 2017-02-02 21:30 | Emergency (ER) | payer MEDICARE, MEDICAID ==
[2017-02-02] MEDS ORDERED: Ketorolac 60 MG/2 ML SDV IM ONE (21:52)
[2017-02-02] MEDS ORDERED: diphenhydrAMINE 50 MG/ML SDV IM ONE (21:52)
[2017-02-02] MEDS ORDERED: Promethazine 25 MG/ML SDV IM ONE (21:52)
[2017-02-02 22:14] VITALS: BP 136/84
--- NOTE | 2017-02-02 22:14 | EDM.PDOC ---
ED HPI GENERAL MEDICAL PROBLEM - General Chief Complaint: Headache Stated Complaint: migraine Time Seen by Provider: 02/02/17 21:40 Source of Information: Reports: Patient History Limitations: Reports: No Limitations - History of Present Illness INITIAL COMMENTS - FREE TEXT/NARRATIVE: Patient presents with headache that started 12 hours ago. He has been diagnosed by a neurologist with both migraine and cluster-tension headaches that frequently require ER treatment when they present together. He is successful treating at home with Sumatriptan when it is an isolated migraine. He says the headache today is very typical for his combination headaches. Some nausea but no vomiting, vision change, balance problem, weakness, dizziness. - Related Data Allergies Allergy/AdvReac Type Severity Reaction Status Date / Time aspirin Allergy Unknown Vomiting Verified 02/02/17 21:52 Home Meds: Home Meds Pregabalin [Lyrica] 100 mg PO TID 10/29/13 [History] Promethazine [Phenergan] 25 mg PO Q6HR PRN 10/29/13 [History] SUMAtriptan [Sumatriptan] 100 mg PO BID PRN 10/29/13 [History] tiZANidine [Zanaflex] 8 mg PO TID 10/29/13 [History] traMADol HCl [Tramadol HCl] 50 mg PO Q6H PRN 02/16/14 [History] Hydrocodone/Acetaminophen [Hydrocodon-Acetaminophn 10-325] 10 - 325 mg PO TID [History] SUMAtriptan [Imitrex] 6 mg SQ BID PRN 11/11/14 [History] Past Medical History HEENT History: Reports: Impaired Vision, Otitis Media, Other (See Below) Other HEENT History: Tonsilitis Cardiovascular History: Reports: None Respiratory History: Reports: Asthma, Other (See Below) Other Respiratory History: White lung disease Gastrointestinal History: Reports: GI Bleed, PUD Musculoskeletal History: Reports: Fracture, Other (See Below) Other Musculoskeletal History: States he fractured both lower legs when he was 16 yrs old. The accident affected his bilateral knees and his neck. Neurological History: Reports: Headaches, Chronic, Migraines, Other (See Below) Other Neuro History: herniated disc in neck Psychiatric History: Reports: Anxiety, Depression - Infectious Disease History Infectious Disease History: Reports: Chicken Pox - Past Surgical History HEENT Surgical History: Reports: Oral Surgery Respiratory Surgical History: Reports: None GI Surgical History: Reports: None Neurological Surgical History: Reports: None Social & Family History - Family History Family Medical History: Noncontributory - Tobacco Use Smoking Status *Q: Current Every Day Smoker Years of Tobacco use: 24 Packs/Tins Daily: 0.5 Used Tobacco, but Quit: No Second Hand Smoke Exposure: Yes - Caffeine Use Caffeine Use: Reports: Soda Other Caffeine Use: mountain dew - Alcohol Use Days Per Week of Alcohol Use: 1 Number of Drinks Per Day: 2 Total Drinks Per Week: 2 - Recreational Drug Use Recreational Drug Use: No - Living Situation & Occupation Occupation: Disabled ED ROS GENERAL - Review of Systems Review Of Systems: ROS reveals no pertinent complaints other than HPI. - Physical Exam Exam: See Below Exam Limited By: No Limitations General Appearance: Alert, WD/WN, No Apparent Distress Eye Exam: Bilateral Eye: EOMI, Normal Inspection, PERRL Ears: Normal External Exam, Hearing Grossly Normal Nose: Normal Inspection, No Blood Throat/Mouth: Normal Lips, Normal Voice, No Airway Compromise Head Exam: Atraumatic, Normocephalic Neck: Full Range of Motion Respiratory/Chest: No Respiratory Distress, Lungs Clear, Normal Breath Sounds Cardiovascular: Regular Rate, Rhythm, No Murmur GI/Abdominal: No Distention Neuro Exam (Abbreviated): Alert, Oriented, CN II-XII Intact, Normal Cognition, Normal Gait, No Motor/Sensory Deficits Psychiatric: Normal Affect, Normal Mood Skin Exam: Warm, Dry, Intact, Normal Color, No Rash Course - Orders/Labs/Meds Meds: Medications Discontinued Medications Generic Name Dose Route Start Last Admin Trade Name Patricia PRN Reason Stop Dose Admin Diphenhydramine HCl 50 mg 02/02/17 21:52 Benadryl IM 02/02/17 21:53 ONETIME ONE Ketorolac Tromethamine 60 mg 02/02/17 21:52 Toradol IM 02/02/17 21:53 ONETIME ONE Promethazine HCl 25 mg 02/02/17 21:52 Phenergan IM 02/02/17 21:53 ONETIME ONE - Re-Assessments/Exams Free Text/Narrative Re-Assessment/Exam: 02/02/17 22:15 Headache was 10/10 on arrival and it is starting to improve now. We gave toradol, benadryl and phenergan IM which usually works well for him and he is able to go home and sleep. Typically the pain drops to 0-2 with in the hour. Pt discharged in stable condition. Departure - Departure Time of Disposition: 22:15 Disposition: Home, Self-Care 01 Condition: Good Clinical Impression: Migraine Headache Qualifiers: Headache type: cluster Headache chronicity pattern: episodic headache Intractability: intractable Qualified Code(s): G44.011 - Episodic cluster headache, intractable Cluster headache syndrome, unspecified Qualifiers: Headache chronicity pattern: episodic headache Intractability: intractable Qualified Code(s): G44.011 - Episodic cluster headache, intractable - Discharge Information Additional Instructions: 1. Try to sleep for 8-10 hours if possible. 2. Drink 8 cups of water a day and make sure to get some fresh air and exercise each day. 3. Follow up with your PCP if this doesn't completely resolve overnight. 4. Recheck with your PCP or ER as needed.
== END 2017-02-02 22:15 | disposition home or self-care (01) ==
LOC: KA.ED 21:30
DX: G44.011 Episodic cluster headache, intractable (principal); F17.210 Nicotine dependence, cigarettes, uncomplicated; G43.909 Migraine, unspecified, not intractable, without status migrainosus; Z88.8 Allergy status to other drugs, medicaments and biological substances
CPT/HCPCS: 96372; 99283; J1200; J1885; J2550

== ENCOUNTER 2017-04-10 00:03 | Emergency (ER) | payer MEDICARE, MEDICAID ==
[2017-04-10 00:11] VITALS: BP 150/98
[2017-04-10] MEDS ORDERED: Ketorolac 60 MG/2 ML SDV IM ONE (00:35)
[2017-04-10] MEDS ORDERED: diphenhydrAMINE 50 MG/ML SDV IM ONE (00:35)
[2017-04-10] MEDS ORDERED: Promethazine 25 MG/ML SDV IM ONE (00:35)
--- NOTE | 2017-04-10 00:42 | EDM.PDOC ---
ED HPI GENERAL MEDICAL PROBLEM - General Chief Complaint: Headache Stated Complaint: Migraine Time Seen by Provider: 04/10/17 00:22 Source of Information: Reports: Patient History Limitations: Reports: No Limitations - History of Present Illness INITIAL COMMENTS - FREE TEXT/NARRATIVE: Patient presents with one of his typical migraine/cluster headaches. He took his usual migraine abortive meds at home and the migraine was getting better he thought then a cluster headache ensued. Pain is 10/10. Nothing unusual about this headache compared to his usual he states. 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) - Related Data Allergies Allergy/AdvReac Type Severity Reaction Status Date / Time aspirin Allergy Unknown Vomiting Verified 04/10/17 00:06 Home Meds: Home Meds Pregabalin [Lyrica] 100 mg PO TID 10/29/13 [History] Promethazine [Phenergan] 25 mg PO Q6HR PRN 10/29/13 [History] SUMAtriptan [Sumatriptan] 100 mg PO BID PRN 10/29/13 [History] tiZANidine [Zanaflex] 8 mg PO TID 10/29/13 [History] traMADol HCl [Tramadol HCl] 50 mg PO Q6H PRN 02/16/14 [History] Hydrocodone/Acetaminophen [Hydrocodon-Acetaminophn 10-325] 10 - 325 mg PO TID [History] SUMAtriptan [Imitrex] 6 mg SQ BID PRN 11/11/14 [History] Past Medical History HEENT History: Reports: Impaired Vision, Otitis Media, Other (See Below) Other HEENT History: Tonsilitis Cardiovascular History: Reports: None Respiratory History: Reports: Asthma, Other (See Below) Other Respiratory History: White lung disease Gastrointestinal History: Reports: GI Bleed, PUD Musculoskeletal History: Reports: Fracture, Other (See Below) Other Musculoskeletal History: States he fractured both lower legs when he was 16 yrs old. The accident affected his bilateral knees and his neck. Neurological History: Reports: Headaches, Chronic, Migraines, Other (See Below) Other Neuro History: herniated disc in neck Psychiatric History: Reports: Anxiety, Depression - Infectious Disease History Infectious Disease History: Reports: Chicken Pox - Past Surgical History HEENT Surgical History: Reports: Oral Surgery Respiratory Surgical History: Reports: None GI Surgical History: Reports: None Neurological Surgical History: Reports: None Social & Family History - Family History Family Medical History: Noncontributory - Tobacco Use Smoking Status *Q: Current Every Day Smoker Years of Tobacco use: 24 Packs/Tins Daily: 0.5 Used Tobacco, but Quit: No Second Hand Smoke Exposure: Yes - Caffeine Use Caffeine Use: Reports: Soda Other Caffeine Use: mountain dew - Alcohol Use Days Per Week of Alcohol Use: 1 Number of Drinks Per Day: 2 Total Drinks Per Week: 2 - Recreational Drug Use Recreational Drug Use: No - Living Situation & Occupation Occupation: Disabled ED ROS GENERAL - Review of Systems Review Of Systems: See Below Constitutional: Denies: Fever, Chills, Weakness HEENT: Denies: Ear Pain, Throat Pain, Vision Change Respiratory: Denies: Shortness of Breath, Cough Cardiovascular: Denies: Chest Pain, Lightheadedness, Syncope GI/Abdominal: Reports: Nausea. Denies: Abdominal Pain, Diarrhea, Vomiting : Denies: Dysuria, Flank Pain Musculoskeletal: Reports: No Symptoms Skin: Denies: Cyanosis, Jaundice, Mottled, Pallor, Diaphoresis Neurological: Reports: Headache. Denies: Confusion, Dizziness, Seizure, Syncope , Trouble Speaking, Difficulty Walking Psychiatric: Denies: Agitation, Anxiety, Confusion - Physical Exam Exam: See Below Exam Limited By: No Limitations General Appearance: Alert, WD/WN, No Apparent Distress Eye Exam: Bilateral Eye: EOMI, Normal Inspection, PERRL Ears: Normal External Exam, Hearing Grossly Normal Nose: Normal Inspection, No Blood Throat/Mouth: Normal Inspection, Normal Lips, Normal Voice, No Airway Compromise Head Exam: Atraumatic, Normocephalic Neck: Normal Inspection, Supple, Non-Tender, Full Range of Motion. No: Carotid Bruit Respiratory/Chest: No Respiratory Distress, Lungs Clear, Normal Breath Sounds, No Accessory Muscle Use Cardiovascular: Regular Rate, Rhythm, No Murmur Neuro Exam (Abbreviated): Alert, Oriented, Normal Cognition, No Motor/Sensory Deficits Extremities: Normal Inspection, Normal Range of Motion Psychiatric: Normal Affect, Normal Mood Skin Exam: Warm, Dry, Intact, Normal Color, No Rash Course - Vital Signs Last Recorded V/S: Last Vital Signs Temp 96.6 F 04/10/17 00:05 Pulse 84 04/10/17 00:05 Resp 18 04/10/17 00:05 BP 150/98 H 04/10/17 00:05 Pulse Ox 97 04/10/17 00:05 - Orders/Labs/Meds Orders: Active Orders 24 hr Category Date Time Status Ketorolac [Toradol] Med 04/10/17 00:35 Once 60 mg IM ONETIME ONE Promethazine [Phenergan] Med 04/10/17 00:35 Once 12.5 mg IM ONETIME ONE diphenhydrAMINE [Benadryl] Med 04/10/17 00:35 Once 50 mg IM ONETIME ONE - Re-Assessments/Exams Free Text/Narrative Re-Assessment/Exam: 04/10/17 00:44 Discussed findings and usual treatment plan which works predictably for the patient. He will go home immediately after administration of the IM medications as he can be home in 5 minutes which is long before the side effect of drowsiness develops. He also says that the drowsiness is never severe and sometimes he wishes it would be more significant so he would sleep quicker. Patient is stable and this appears consistent with the past headaches I have treated him for. Since he took Phenergan at home about 3.5 hours ago I will administer 12.5 mg now instead of 25. Departure - Departure Time of Disposition: 00:37 Disposition: Home, Self-Care 01 Condition: Good Clinical Impression: Cluster headache syndrome, unspecified Migraine Qualifiers: Status migrainosus presence: without status migrainosus - Discharge Information Referrals: Martha Poole MD [Primary Care Provider] - Additional Instructions: 1. Go directly home and sleep for several hours. 2. Follow up with your PCP as needed if not resolving. 3. Return to ER if worsening. - My Orders Last 24 Hours: My Active Orders 04/10/17 00:35 Ketorolac [Toradol] 60 mg IM ONETIME ONE Promethazine [Phenergan] 12.5 mg IM ONETIME ONE diphenhydrAMINE [Benadryl] 50 mg IM ONETIME ONE - Assessment/Plan Last 24 Hours: My Active Orders 04/10/17 00:35 Ketorolac [Toradol] 60 mg IM ONETIME ONE Promethazine [Phenergan] 12.5 mg IM ONETIME ONE diphenhydrAMINE [Benadryl] 50 mg IM ONETIME ONE
== END 2017-04-10 00:55 | disposition home or self-care (01) ==
LOC: KA.ED 00:03
DX: G44.009 Cluster headache syndrome, unspecified, not intractable (principal); Z88.6 Allergy status to analgesic agent; Z79.899 Other long term (current) drug therapy; F17.210 Nicotine dependence, cigarettes, uncomplicated
CPT/HCPCS: 96372; 99283; J1200; J1885; J2550

== ENCOUNTER 2017-04-26 09:17 | Emergency (ER) | payer MEDICARE, MEDICAID ==
[2017-04-26 09:28] VITALS: BP 149/90
[2017-04-26] MEDS ORDERED: Ketorolac 60 MG/2 ML SDV IM ONE (10:16)
[2017-04-26] MEDS ORDERED: diphenhydrAMINE 50 MG/ML SDV IM ONE (10:16)
[2017-04-26] MEDS ORDERED: Promethazine 25 MG/ML SDV IM ONE (10:16)
--- NOTE | 2017-04-26 10:19 | EDM.PDOC ---
ED HPI GENERAL MEDICAL PROBLEM - General Chief Complaint: Headache Time Seen by Provider: 04/26/17 10:10 Source of Information: Reports: Patient History Limitations: Reports: No Limitations - History of Present Illness INITIAL COMMENTS - FREE TEXT/NARRATIVE: Patient presents with one his typical migraines that started around [id number] today. No nausea yet but photosensitivity. Feels very typical for his headaches he says. 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) Headache Pain Score (Numeric/FACES): 8 - Related Data Allergies Allergy/AdvReac Type Severity Reaction Status Date / Time aspirin Allergy Unknown Vomiting Verified 04/26/17 09:27 Home Meds: Home Meds Pregabalin [Lyrica] 100 mg PO TID 10/29/13 [History] Promethazine [Phenergan] 25 mg PO Q6HR PRN 10/29/13 [History] SUMAtriptan [Sumatriptan] 100 mg PO BID PRN 10/29/13 [History] tiZANidine [Zanaflex] 8 mg PO TID 10/29/13 [History] traMADol HCl [Tramadol HCl] 50 mg PO Q6H PRN 02/16/14 [History] Hydrocodone/Acetaminophen [Hydrocodon-Acetaminophn 10-325] 10 - 325 mg PO TID [History] SUMAtriptan [Imitrex] 6 mg SQ BID PRN 11/11/14 [History] Past Medical History HEENT History: Reports: Impaired Vision, Otitis Media, Other (See Below) Other HEENT History: Tonsilitis Cardiovascular History: Reports: None Respiratory History: Reports: Asthma, Other (See Below) Other Respiratory History: White lung disease Gastrointestinal History: Reports: GI Bleed, PUD Musculoskeletal History: Reports: Fracture, Other (See Below) Other Musculoskeletal History: States he fractured both lower legs when he was 16 yrs old. The accident affected his bilateral knees and his neck. Neurological History: Reports: Headaches, Chronic, Migraines, Other (See Below) Other Neuro History: herniated disc in neck Psychiatric History: Reports: Anxiety, Depression - Infectious Disease History Infectious Disease History: Reports: Chicken Pox - Past Surgical History HEENT Surgical History: Reports: Oral Surgery Respiratory Surgical History: Reports: None GI Surgical History: Reports: None Neurological Surgical History: Reports: None Social & Family History - Family History Family Medical History: Noncontributory - Tobacco Use Smoking Status *Q: Current Every Day Smoker Years of Tobacco use: 24 Packs/Tins Daily: 0.5 Used Tobacco, but Quit: No Second Hand Smoke Exposure: Yes - Caffeine Use Caffeine Use: Reports: Soda Other Caffeine Use: mountain dew - Alcohol Use Days Per Week of Alcohol Use: 1 Number of Drinks Per Day: 2 Total Drinks Per Week: 2 - Recreational Drug Use Recreational Drug Use: No - Living Situation & Occupation Occupation: Disabled ED ROS GENERAL - Review of Systems Review Of Systems: ROS reveals no pertinent complaints other than HPI. - Physical Exam Exam: See Below Exam Limited By: No Limitations General Appearance: Alert, WD/WN, No Apparent Distress Eye Exam: Bilateral Eye: EOMI, Normal Inspection, PERRL Ears: Normal External Exam, Hearing Grossly Normal Nose: Normal Inspection, No Blood Throat/Mouth: Normal Lips, Normal Voice, No Airway Compromise Head Exam: Atraumatic, Normocephalic Neck: Normal Inspection, Full Range of Motion Respiratory/Chest: No Respiratory Distress, Lungs Clear, Normal Breath Sounds, No Accessory Muscle Use Cardiovascular: Regular Rate, Rhythm, No Murmur Neuro Exam (Abbreviated): Alert, Oriented, Normal Cognition, No Motor/Sensory Deficits Extremities: Normal Range of Motion Psychiatric: Normal Affect, Normal Mood Skin Exam: Warm, Dry, Intact, Normal Color, No Rash Course - Vital Signs Last Recorded V/S: Last Vital Signs Temp 97.2 F 04/26/17 09:20 Pulse 92 04/26/17 09:20 Resp 16 04/26/17 09:20 BP 149/90 H 04/26/17 09:20 Pulse Ox 99 04/26/17 09:20 - Orders/Labs/Meds Meds: Medications Discontinued Medications Generic Name Dose Route Start Last Admin Trade Name Freq PRN Reason Stop Dose Admin Diphenhydramine HCl 50 mg 04/26/17 10:16 04/26/17 10:28 Benadryl IM 04/26/17 10:17 50 mg ONETIME ONE Administration Ketorolac Tromethamine 60 mg 04/26/17 10:16 04/26/17 10:29 Toradol IM 04/26/17 10:17 60 mg ONETIME ONE Administration Promethazine HCl 12.5 mg 04/26/17 10:16 04/26/17 10:24 Phenergan IM 04/26/17 10:17 12.5 mg ONETIME ONE Administration Departure - Departure Time of Disposition: 10:19 Disposition: Home, Self-Care 01 Condition: Good Clinical Impression: Migraine Qualifiers: Status migrainosus presence: without status migrainosus - Discharge Information Referrals: Martha Poole MD [Primary Care Provider] - Forms: ED Department Discharge Additional Instructions: 1. TAke your usual medications, drink 8 cups of water daily and follow up with your PCP if any problems.
== END 2017-04-26 10:30 | disposition home or self-care (01) ==
LOC: KA.ED 09:17
DX: G43.909 Migraine, unspecified, not intractable, without status migrainosus (principal); F17.210 Nicotine dependence, cigarettes, uncomplicated; Z88.6 Allergy status to analgesic agent
CPT/HCPCS: 96372; 99283; J1200; J1885; J2550

== ENCOUNTER 2017-05-08 10:03 | Emergency (ER) | payer MEDICARE, MEDICAID ==
[2017-05-08] MEDS ORDERED: Ketorolac 60 MG/2 ML SDV IM ONE (11:08)
[2017-05-08] MEDS ORDERED: diphenhydrAMINE 50 MG/ML SDV IM ONE (11:08)
--- NOTE | 2017-05-08 11:15 | EDM.PDOC ---
ED HPI GENERAL MEDICAL PROBLEM - General Chief Complaint: Headache Stated Complaint: MIGRAINE HEADACHE Time Seen by Provider: 05/08/17 10:45 Source of Information: Reports: Patient History Limitations: Reports: No Limitations - History of Present Illness INITIAL COMMENTS - FREE TEXT/NARRATIVE: 37 YO WM presents to ER complaining of migraine ROMERO which began this am. Pt reports he took imitrex x 1 without relief prompting ER evaluation. Pt denies any vomiting, denies fever/chills or body aches. Pt reports he usually gets IM injections when he comes to ER. Pt reports this headache is similar to his chronic tension headaches. Onset: Today Location: Reports: Head Quality: Reports: Ache Severity: Moderate Improves with: Reports: None Worsens with: Reports: None Associated Symptoms: Reports: No Other Symptoms, Headaches. Denies: Confusion, Seizure, Syncope Head Pain Score (Numeric/FACES): 9 - Related Data Allergies Allergy/AdvReac Type Severity Reaction Status Date / Time aspirin Allergy Unknown Vomiting Verified 05/08/17 10:26 Home Meds: Home Meds Pregabalin [Lyrica] 100 mg PO TID 10/29/13 [History] Promethazine [Phenergan] 25 mg PO Q6HR PRN 10/29/13 [History] SUMAtriptan [Sumatriptan] 100 mg PO BID PRN 10/29/13 [History] tiZANidine [Zanaflex] 8 mg PO TID 10/29/13 [History] traMADol HCl [Tramadol HCl] 50 mg PO Q6H PRN 02/16/14 [History] Hydrocodone/Acetaminophen [Hydrocodon-Acetaminophn 10-325] 10 - 325 mg PO TID [History] SUMAtriptan [Imitrex] 6 mg SQ BID PRN 11/11/14 [History] Ondansetron [Zofran ODT] 4 mg PO Q6H PRN #6 tab.dis 05/08/17 [Rx] Past Medical History HEENT History: Reports: Impaired Vision, Otitis Media, Other (See Below) Other HEENT History: Tonsilitis Cardiovascular History: Reports: None Respiratory History: Reports: Asthma, Other (See Below) Other Respiratory History: White lung disease Gastrointestinal History: Reports: GI Bleed, PUD Musculoskeletal History: Reports: Fracture, Other (See Below) Other Musculoskeletal History: States he fractured both lower legs when he was 16 yrs old. The accident affected his bilateral knees and his neck. Neurological History: Reports: Headaches, Chronic, Migraines, Other (See Below) Other Neuro History: herniated disc in neck Psychiatric History: Reports: Anxiety, Depression - Infectious Disease History Infectious Disease History: Reports: Chicken Pox - Past Surgical History HEENT Surgical History: Reports: Oral Surgery Respiratory Surgical History: Reports: None GI Surgical History: Reports: None Neurological Surgical History: Reports: None Social & Family History - Family History Family Medical History: Noncontributory - Tobacco Use Smoking Status *Q: Current Every Day Smoker Years of Tobacco use: 24 Packs/Tins Daily: 0.5 Used Tobacco, but Quit: No Second Hand Smoke Exposure: Yes - Caffeine Use Caffeine Use: Reports: Soda Other Caffeine Use: mountain dew - Alcohol Use Days Per Week of Alcohol Use: 0 Number of Drinks Per Day: 2 Total Drinks Per Week: 0 - Recreational Drug Use Recreational Drug Use: No - Living Situation & Occupation Occupation: Disabled ED [facility] GENERAL - Review of Systems Review Of Systems: See Below Constitutional: Reports: No Symptoms HEENT: Reports: No Symptoms Respiratory: Reports: No Symptoms Cardiovascular: Reports: No Symptoms Endocrine: Reports: No Symptoms GI/Abdominal: Reports: No Symptoms : Reports: No Symptoms Musculoskeletal: Reports: No Symptoms Skin: Reports: No Symptoms Neurological: Reports: Headache Psychiatric: Reports: No Symptoms Hematologic/Lymphatic: Reports: No Symptoms Immunologic: Reports: No Symptoms - Physical Exam Exam: See Below Exam Limited By: No Limitations General Appearance: Alert, WD/WN, No Apparent Distress Eye Exam: Bilateral Eye: EOMI, PERRL Ears: Normal External Exam, Normal Canal, Hearing Grossly Normal, Normal TMs Nose: Normal Inspection, Normal Mucosa, No Blood Throat/Mouth: Normal Inspection, Normal Lips, Normal Teeth, Normal Gums, Normal Oropharynx, Normal Voice, No Airway Compromise Head Exam: Atraumatic, Normocephalic Neck: Normal Inspection, Supple, Non-Tender, Full Range of Motion Respiratory/Chest: No Respiratory Distress, Lungs Clear, Normal Breath Sounds, No Accessory Muscle Use, Chest Non-Tender Cardiovascular: Normal Peripheral Pulses, Regular Rate, Rhythm, No Edema, No Gallop, No JVD, No Murmur, No Rub GI/Abdominal: Normal Bowel Sounds, Soft, Non-Tender, No Organomegaly, No Distention, No Abnormal Bruit, No Mass Neuro Exam (Abbreviated): Alert, Oriented, CN II-XII Intact, Normal Cognition, Normal Gait, Normal Reflexes, No Motor/Sensory Deficits Back Exam: Normal Inspection, Full Range of Motion, NT Extremities: Normal Inspection, Normal Range of Motion, Non-Tender, No Pedal Edema, Normal Capillary Refill Psychiatric: Normal Affect, Normal Mood Skin Exam: Warm, Dry, Intact, Normal Color, No Rash Course - Vital Signs Last Recorded V/S: Last Vital Signs Temp 37.5 C 05/08/17 10:17 Pulse 74 05/08/17 10:17 Resp 18 05/08/17 10:17 BP 143/88 H 05/08/17 10:17 Pulse Ox 98 05/08/17 10:17 - Orders/Labs/Meds Meds: Medications Discontinued Medications Generic Name Dose Route Start Last Admin Trade Name Freq PRN Reason Stop Dose Admin Diphenhydramine HCl 50 mg 05/08/17 11:08 Benadryl IM 05/08/17 11:09 ONETIME ONE Ketorolac Tromethamine 60 mg 05/08/17 11:08 Toradol IM 05/08/17 11:09 ONETIME ONE Departure - Departure Time of Disposition: 11:17 Disposition: Home, Self-Care 01 Condition: Good Clinical Impression: Headache Qualifiers: Headache type: unspecified Headache chronicity pattern: episodic headache Intractability: intractable Qualified Code(s): R51 - Headache - Discharge Information Prescriptions: Ondansetron [Zofran ODT] 4 mg PO Q6H PRN #6 tab.dis PRN Reason: Nausea/Vomiting Instructions: Recurrent Migraine Headache, [id number] Referrals: Martha Poole MD [Primary Care Provider] - - Assessment/Plan Assessment:: 1. chronic headache- migraine vs tension Plan: 1. discharge home 2. zofran 4mg ODT Q8 PRN 3. benadryl/motrin if headache returns 4. follow up with PCP for further management 5. return to ER for worsening symptoms
[2017-05-08 11:29] VITALS: BP 148/96
== END 2017-05-08 11:31 | disposition home or self-care (01) ==
LOC: KA.ED 10:03
DX: R51 Headache (principal); F17.210 Nicotine dependence, cigarettes, uncomplicated; Z88.6 Allergy status to analgesic agent
CPT/HCPCS: 96372; 99283; J1200; J1885

== ENCOUNTER 2017-06-05 09:50 | Emergency (ER) | payer MEDICARE, MEDICAID ==
[2017-06-05] MEDS ORDERED: Ketorolac 60 MG/2 ML SDV IM ONE (10:41)
[2017-06-05] MEDS ORDERED: diphenhydrAMINE 25 MG Cap PO ONE (10:41)
[2017-06-05] MEDS ORDERED: Metoclopramide 10 MG Tab PO ONE (10:41)
--- NOTE | 2017-06-05 10:42 | EDM.PDOC ---
ED HPI GENERAL MEDICAL PROBLEM - General Chief Complaint: Headache Stated Complaint: MIGRAINE Time Seen by Provider: 06/05/17 10:35 Source of Information: Reports: Patient History Limitations: Reports: No Limitations - History of Present Illness INITIAL COMMENTS - FREE TEXT/NARRATIVE: Patient is a 37-year-old gentleman who presents to the emergency department this morning with a complaint of chronic migraine exacerbation. Patient states that migraine started yesterday, he took Imitrex, had some relief last night but woke up this morning and headache persisted, and does have a history of chronic migraines and is known to frequent the emergency department on weekends. Patient denies fever, head trauma, neck stiffness, migraine that differs from his typical symptoms, chest pain, or shortness of breath. Onset: Gradual Onset Date: 06/04/17 Duration: Day(s): Location: Reports: Head Quality: Reports: Ache Improves with: Reports: None Worsens with: Reports: None Context: Denies: Sick Contact, Trauma Associated Symptoms: Reports: Nausea/Vomiting Head Pain Score (Numeric/FACES): 10 - Related Data Allergies Allergy/AdvReac Type Severity Reaction Status Date / Time aspirin Allergy Unknown Vomiting Verified 06/05/17 10:00 Home Meds: Home Meds Pregabalin [Lyrica] 100 mg PO TID 10/29/13 [History] Promethazine [Phenergan] 25 mg PO Q6HR PRN 10/29/13 [History] SUMAtriptan [Sumatriptan] 100 mg PO BID PRN 10/29/13 [History] tiZANidine [Zanaflex] 8 mg PO TID 10/29/13 [History] traMADol HCl [Tramadol HCl] 50 mg PO Q6H PRN 02/16/14 [History] Hydrocodone/Acetaminophen [Hydrocodon-Acetaminophn 10-325] 10 - 325 mg PO TID [History] SUMAtriptan [Imitrex] 6 mg SQ BID PRN 11/11/14 [History] Past Medical History HEENT History: Reports: Impaired Vision, Otitis Media, Other (See Below) Other HEENT History: Tonsilitis Cardiovascular History: Reports: None Respiratory History: Reports: Asthma, Other (See Below) Other Respiratory History: White lung disease Gastrointestinal History: Reports: GI Bleed, PUD Musculoskeletal History: Reports: Fracture, Other (See Below) Other Musculoskeletal History: States he fractured both lower legs when he was 16 yrs old. The accident affected his bilateral knees and his neck. Neurological History: Reports: Headaches, Chronic, Migraines, Other (See Below) Other Neuro History: herniated disc in neck Psychiatric History: Reports: Anxiety, Depression - Infectious Disease History Infectious Disease History: Reports: Chicken Pox - Past Surgical History HEENT Surgical History: Reports: Oral Surgery Respiratory Surgical History: Reports: None GI Surgical History: Reports: None Neurological Surgical History: Reports: None Social & Family History - Family History Family Medical History: Noncontributory - Tobacco Use Smoking Status *Q: Current Every Day Smoker Years of Tobacco use: 15 Packs/Tins Daily: 0.5 Used Tobacco, but Quit: No Second Hand Smoke Exposure: Yes - Caffeine Use Caffeine Use: Reports: Soda Other Caffeine Use: mountain dew - Alcohol Use Days Per Week of Alcohol Use: 1 Number of Drinks Per Day: 1 Total Drinks Per Week: 1 - Recreational Drug Use Recreational Drug Use: No - Living Situation & Occupation Occupation: Disabled ED [facility] GENERAL - Review of Systems Review Of Systems: See Below Constitutional: Reports: No Symptoms HEENT: Reports: No Symptoms Respiratory: Reports: No Symptoms Cardiovascular: Reports: No Symptoms Endocrine: Reports: No Symptoms GI/Abdominal: Reports: Nausea. Denies: Abdominal Pain, Vomiting : Reports: No Symptoms Musculoskeletal: Reports: No Symptoms Skin: Reports: No Symptoms Neurological: Reports: No Symptoms Psychiatric: Reports: No Symptoms Hematologic/Lymphatic: Reports: No Symptoms Immunologic: Reports: No Symptoms - Physical Exam Exam: See Below Exam Limited By: No Limitations General Appearance: Alert, WD/WN, No Apparent Distress Eye Exam: Bilateral Eye: Normal Inspection Ears: Normal External Exam, Normal Canal, Normal TMs Nose: Normal Inspection, Normal Mucosa, No Blood Throat/Mouth: Normal Inspection, Normal Oropharynx, No Airway Compromise Head Exam: Atraumatic, Normocephalic Neck: Normal Inspection, Supple, Non-Tender, Full Range of Motion Respiratory/Chest: No Respiratory Distress, Lungs Clear, Normal Breath Sounds, No Accessory Muscle Use, Chest Non-Tender Cardiovascular: Regular Rate, Rhythm, No Murmur GI/Abdominal: Normal Bowel Sounds, Soft, Non-Tender Neuro Exam (Abbreviated): Alert, Oriented, CN II-XII Intact, Normal Cognition, No Motor/Sensory Deficits Back Exam: Normal Inspection Extremities: Normal Inspection, No Pedal Edema Psychiatric: Normal Affect, Normal Mood Skin Exam: Warm, Dry, Intact, Normal Color, No Rash Course - Vital Signs Last Recorded V/S: Last Vital Signs Temp 96.6 F 06/05/17 10:02 Pulse 94 06/05/17 10:02 Resp 20 06/05/17 10:02 BP 145/97 H 06/05/17 10:02 Pulse Ox 95 06/05/17 10:02 - Re-Assessments/Exams Free Text/Narrative Re-Assessment/Exam: 06/05/17 10:42 Patient afebrile, nontoxic appearing, vital signs stable, pain subsided Departure - Departure Time of Disposition: 11:05 Disposition: Home, Self-Care 01 Condition: Good Clinical Impression: Migraine, Headache - Discharge Information Instructions: Migraine Headache, [id number], Recurrent Migraine Headache, [id number] Referrals: Martha Poole MD [Primary Care Provider] - Additional Instructions: Follow-up with Dr. Wayne in 2-3 days. Return to the emergency room sooner if symptoms continue or worsen. - Assessment/Plan Assessment:: Chronic migraine headache Plan: Follow-up with PCP in 2-3 days
[2017-06-05 11:27] VITALS: BP 126/83
== END 2017-06-05 11:28 | disposition home or self-care (01) ==
LOC: KA.ED 09:50
DX: G43.909 Migraine, unspecified, not intractable, without status migrainosus (principal); J45.909 Unspecified asthma, uncomplicated; F41.9 Anxiety disorder, unspecified; F32.9 Major depressive disorder, single episode, unspecified; F17.210 Nicotine dependence, cigarettes, uncomplicated; Z88.6 Allergy status to analgesic agent; Z79.899 Other long term (current) drug therapy
CPT/HCPCS: 96372; 99283; A9270; J1885; 99282

== ENCOUNTER 2018-06-25 11:19 | Emergency (ER) | payer MEDICARE, MEDICAID ==
[2018-06-25] MEDS: Ondansetron 4 MG Tab.DIS PO ONE (12:37)
[2018-06-25] MEDS: methylPREDNISolone Sodium Succinate 125 MG/2 ML SDV IM ONE (12:38)
[2018-06-25] MEDS: Ondansetron 4 MG Tab.DIS ONE (12:38)
[2018-06-25] MEDS: diphenhydrAMINE 50 MG/ML SDV IM ONE (12:41)
[2018-06-25] MEDS: Ketorolac 30 MG/ML SDV IM ONE (12:41)
[2018-06-25] MEDS: methylPREDNISolone Sodium Succinate 125 MG/2 ML SDV IVPUSH ONE (12:45)
[2018-06-25] MEDS: Ketorolac 30 MG/ML SDV IVPUSH ONE (12:45)
[2018-06-25] MEDS: diphenhydrAMINE 50 MG/ML SDV IVPUSH ONE (12:45)
[2018-06-25] MEDS: Ondansetron 4 MG/2 ML SDV IVPUSH ONE (12:45)
--- NOTE | 2018-06-25 13:24 | EDM.PDOC ---
ED HPI GENERAL MEDICAL PROBLEM - General Chief Complaint: Headache Stated Complaint: MIGRAINE Time Seen by Provider: 06/25/18 11:30 Source of Information: Reports: Patient History Limitations: Reports: No Limitations - History of Present Illness INITIAL COMMENTS - FREE TEXT/NARRATIVE: 38-year-old male presents emergency room with long history of migraine headaches. He takes multiple medications for his headaches including Imitrex. He 's had several visits to the ER in the past for his headaches and has responded well to a cocktail of medications including Toradol Benadryl Zofran and steroids. He does state that this headache is similar to his other headaches that he has had starts in the back of his had and radiates to his eyes. He does have photosensitivity and associated nausea. States that he has headaches at least twice a week most the time they respond to his Imitrex. He denies any difficulty with speech, shortness of breath chest pain or unilateral weakness of his upper or lower extremities. No abdominal complaints. Onset: Today Duration: Hour(s):, Getting Worse Location: Reports: Head Quality: Reports: Same as Previous Episode Severity: Severe Improves with: Reports: Medication Worsens with: Reports: Other (light), Movement Associated Symptoms: Reports: Headaches, Nausea/Vomiting. 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) - Related Data Allergies Allergy/AdvReac Type Severity Reaction Status Date / Time aspirin Allergy Unknown Vomiting Verified 06/25/18 11:48 Home Meds: Home Meds Pregabalin [Lyrica] 100 mg PO TID 10/29/13 [History] Promethazine [Phenergan] 25 mg PO Q6HR PRN 10/29/13 [History] SUMAtriptan [Sumatriptan] 100 mg PO BID PRN 10/29/13 [History] tiZANidine [Zanaflex] 8 mg PO TID 10/29/13 [History] traMADol HCl [Tramadol HCl] 50 mg PO Q6H PRN 02/16/14 [History] Hydrocodone/Acetaminophen [Hydrocodon-Acetaminophn 10-325] 10 - 325 mg PO TID [History] SUMAtriptan [Imitrex] 6 mg SQ BID PRN 11/11/14 [History] Past Medical History HEENT History: Reports: Impaired Vision, Otitis Media, Other (See Below) Other HEENT History: Tonsilitis Cardiovascular History: Reports: None Respiratory History: Reports: Asthma, Other (See Below) Other Respiratory History: White lung disease Gastrointestinal History: Reports: GI Bleed, PUD Musculoskeletal History: Reports: Fracture, Other (See Below) Other Musculoskeletal History: States he fractured both lower legs when he was 16 yrs old. The accident affected his bilateral knees and his neck. Neurological History: Reports: Headaches, Chronic, Migraines, Other (See Below) Other Neuro History: herniated disc in neck Psychiatric History: Reports: Anxiety, Depression - Infectious Disease History Infectious Disease History: Reports: Chicken Pox - Past Surgical History HEENT Surgical History: Reports: Oral Surgery Respiratory Surgical History: Reports: None GI Surgical History: Reports: None Neurological Surgical History: Reports: None Social & Family History - Family History Family Medical History: Noncontributory - Caffeine Use Caffeine Use: Reports: Soda Other Caffeine Use: mountain dew - Living Situation & Occupation Occupation: Disabled ED [facility] GENERAL - Review of Systems Review Of Systems: ROS reveals no pertinent complaints other than HPI. - Physical Exam Exam: See Below Exam Limited By: No Limitations General Appearance: Alert, WD/WN, Moderate Distress Eye Exam: Bilateral Eye: EOMI Ears: Hearing Grossly Normal Nose: Normal Inspection Throat/Mouth: Normal Inspection, Normal Voice Head Exam: Atraumatic, Normocephalic Neck: Normal Inspection, Supple Respiratory/Chest: No Respiratory Distress Neuro Exam (Abbreviated): Alert, Oriented, Normal Cognition, Normal Gait, No Motor/Sensory Deficits Back Exam: Normal Inspection, Full Range of Motion Extremities: Normal Inspection, Normal Range of Motion Psychiatric: Depressed Mood Skin Exam: Warm, Dry, Intact, Normal Color Course - Orders/Labs/Meds Meds: Medications Discontinued Medications Generic Name Dose Route Start Last Admin Trade Name Freq PRN Reason Stop Dose Admin Diphenhydramine HCl 50 mg 06/25/18 11:53 06/25/18 12:45 Benadryl IVPUSH 06/25/18 11:54 Not Given ONETIME ONE Diphenhydramine HCl 50 mg 06/25/18 12:33 06/25/18 12:41 Benadryl IM 06/25/18 12:34 50 mg ONETIME ONE Administration Ketorolac Tromethamine 30 mg 06/25/18 11:53 06/25/18 12:45 Toradol IVPUSH 06/25/18 11:54 Not Given ONETIME ONE Ketorolac Tromethamine 30 mg 06/25/18 12:34 06/25/18 12:41 Toradol IM 06/25/18 12:35 30 mg ONETIME ONE Administration Methylprednisolone Sodium Succinate 125 mg 06/25/18 11:55 06/25/18 12:45 Solu-Medrol IVPUSH 06/25/18 11:56 Not Given ONETIME ONE Methylprednisolone Sodium Succinate 125 mg 06/25/18 12:34 06/25/18 12:38 Solu-Medrol IM 06/25/18 12:35 125 mg ONETIME ONE Administration Ondansetron HCl 4 mg 06/25/18 11:54 06/25/18 12:45 Zofran IVPUSH 06/25/18 11:55 Not Given ONETIME ONE Ondansetron HCl Confirm 06/25/18 12:30 06/25/18 12:38 Zofran Odt Administered 06/25/18 12:31 Not Given Dose 4 mg .ROUTE .STK-MED ONE Ondansetron HCl 4 mg 06/25/18 12:34 06/25/18 12:37 Zofran Odt PO 06/25/18 12:35 4 mg ONETIME ONE Administration - Re-Assessments/Exams Free Text/Narrative Re-Assessment/Exam: 06/25/18 13:20 Patient was given 30 mg IV Toradol 50 mg IM Benadryl 4 mg of Zofran ODT 125 mg IM Solu-Medrol. Time of his discharge reports that his pain and headaches have essentially resolved Departure - Departure Time of Disposition: 13:21 Disposition: Home, Self-Care 01 Condition: Good Clinical Impression: Migraine Qualifiers: Status migrainosus presence: without status migrainosus - Discharge Information Instructions: Recurrent Migraine Headache Referrals: Martha Poole MD [Primary Care Provider] - Forms: ED Department Discharge Additional Instructions: 1. Rest 2. Avoid triggers that promote migraine headaches 3. Resume your regular medications that you've been prescribed for your migraines as needed 4. Follow-up with your primary care if symptoms do not seem to improve with your regular prescribed medications - Assessment/Plan Assessment:: Migraine headache, recurrent Plan: 1. Rest 2. Avoid triggers that promote migraine headaches 3. Resume your regular medications that you've been prescribed for your migraines as needed 4. Follow-up with your primary care if symptoms do not seem to improve with your regular prescribed medications
[2018-06-25 14:35] VITALS: BP 174/119
== END 2018-06-25 13:20 | disposition home or self-care (01) ==
LOC: KA.ED 11:19
DX: G43.909 Migraine, unspecified, not intractable, without status migrainosus (principal); F41.9 Anxiety disorder, unspecified; F32.9 Major depressive disorder, single episode, unspecified; J45.909 Unspecified asthma, uncomplicated; Z79.899 Other long term (current) drug therapy; Z88.6 Allergy status to analgesic agent
CPT/HCPCS: 96372; 99283; A9270-GY; J1200; J1885; J2930